=== PATIENT | female | born 2000 | race Caucasian/White ===

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

== ENCOUNTER 2022-09-30 01:59 | Emergency (ER) | payer MEDICAID ==
[~2022-09-30] VITALS: Ht 160 cm; Wt 90.7 kg
[~2022-09-30 01:59] MED LIST changes: +ACHD5005 PO; +DOCU100C37 PO; +FERR325T18 PO; +IBUP-844 PO
[2022-09-30] MEDS ORDERED: PRD50T PO (02:18)
--- NOTE | 2022-09-30 02:19 | ED Respiratory ---
General Chief Complaint: Respiratory Problems Stated Complaint: SOB Nursing Triage Note: PT AMB TO [facility] 5 WITH COMPLAINTS OF SOB AND CHEST PRESSURE AFTER SHE STOPPED SMOKING/VAPING. PT IS CURRENTLY TAKING BREATHING TREATMENTS. Source: patient Exam Limitations: no limitations History of Present Illness Date Seen by Provider: Sep 30, 2022 Time Seen by Provider: 02:06 Initial Comments 22-year-old female presents to the emergency department today for cough, SOB, chest tightness. Symptoms present for months since she quit smoking 1 month ago. She has a productive cough. Denies any fevers or chills. States she was worsening shortness of breath. Using inhalers seem to help some. No chest pa in. Feels back to normal now. She does have alpha-1 antitrypsin deficiency Allergies and Home Medications Allergies Coded Allergies: citric acid (Verified Allergy, Unknown, 01/16/19) sodium citrate (Verified Allergy, Unknown, 01/16/19) Patient Home Medication List Home Medication List Reviewed: Yes Docusate Sodium (Docusate Sodium) 100 Mg Capsule, 100 MG PO BID PRN for CONSTIPATION-1ST LINE Prescribed by: CALISTA PAYTON on 10/15/211657 Ferrous Sulfate (Ferrous Sulfate) 325 Mg Tablet, 325 MG PO BID Prescribed by: CALISTA PAYTON on 10/16/21 0730 Hydrocodone Bit/Acetaminophen (HYDROcodone/APAP 5 MG/325 MG TAB) 1 Tab Tab, 1-2 EA PO Q6HR PRN for PAIN-MODERATE (5-7) Prescribed by: CALISTA PAYTON on 10/15/21 165 Ibuprofen (Ibu) 600 Mg Tablet, 600 MG PO Q6HR Prescribed by: CALISTA PAYTON on 10/15/211657 Pnv with Ca,No.72/Iron/FA ( Vitamin with Low Iron) 1 Each Tablet, 1 EACH PO DAILY, (Reported) Entered as Reported by: PEE ZHANG on 08/11/21 1614 Prednisone (Prednisone) 50 Mg Tab, 50 MG PO DAILY Prescribed by: BELINDA VALLADARES MD on 09/30/22 0218 Review of Systems Review of Systems Constitutional: no symptoms reported EENTM: no symptoms reported Respiratory: cough, short of breath Cardiovascular: no symptoms reported Gastrointestinal: no symptoms reported Genitourinary: no symptoms reported Musculoskeletal: no symptoms reported Skin: no symptoms reported Psychiatric/Neurological: No Symptoms Reported Hematologic/Lymphatic: No Symptoms Reported Past Wlndxup-Wmrkuk-Jsrurz Hx Patient Social History Tobacco Use?: Yes Smoking Status: Former Smoker Substance use?: No Alcohol Use?: No Immunizations Up To Date PED Vaccines UTD: Yes First/Initial COVID19 Vaccinat: 10/2020 Second COVID19 Vaccination César: 11/2020 Third COVID19 Vaccination Date: 10/2020 Seasonal Allergies Seasonal Allergies: No Past Medical History Surgeries: Yes (D&C) Gallbladder Respiratory: No Cardiac: No Neurological: No Reproductive Disorders: No Female Reproductive Disorders: Denies 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 2.0oz. 63.013206tz; 35.00 BMI Method:Stated General Appearance: WD/WN, no apparent distress HEENT: normal ENT inspection, pharynx normal Neck: supple, normal inspection Respiratory: chest non-tender, lungs clear, normal breath sounds, no respiratory distress, no accessory muscle use Cardiovascular: regular rate, rhythm, no murmur Gastrointestinal: normal bowel sounds, non tender, soft, no organomegaly Extremities: non-tender, normal inspection, no pedal edema Neurologic/Psychiatric: alert, normal mood/affect, oriented x 3 Progress/Results/Core Measures Suspected Sepsis SIRS Temperature: Pulse: 72 Respiratory Rate: Blood Pressure 125 /83 Mean: 97 Results/Orders Vital Signs/I&O 09/30/22 09/30/22 09/30/22 02:01 02:01 02:32 Pulse 72 63 B/P (MAP) 125/83 (97) 124/65 Pulse Ox 95 97 O2 Delivery Room Air Room Air Room Air Capillary Refill : Blood Pressure Mean: 97 Departure Communication (Admissions) Patient is hemodynamically stable with a normal exam. Normal respiratory rate, oxygen saturation. Lungs are clear on exam as well. No evidence for pneumonia, pneumothorax. She is afebrile. No indication for chest x-ray at this time. Impression Primary Impression: Shortness of breath Disposition: HOME, SELF-CARE Condition: Stable Departure-Patient Inst. Referrals: [facility] [place], [place] (PCP/Family) Primary Care Physician Patient Instructions: Shortness of Breath, Adult ED Add. Discharge Instructions: I believe the symptoms you are experiencing are normal after quitting smoking. There is no evidence for pneumonia. Your oxygen levels are normal and breathing rate is normal as well. Continue to use your breathing treatments at home as well as rescue inhalers. Start the prednisone tomorrow. Take it in the morning to avoid issues with sleep. Return to the emergency department for any severe concerns. All discharge instructions reviewed with patient and/or family. Voiced understanding. Scripts Prednisone (Prednisone) 50 Mg Tab 50 MG PO DAILY for 5 Days, #5 TAB Prov: BELINDA VALLADARES DO 09/30/22 Work/School Note: Work Release Form Date Seen in the Emergency Department: Sep 30, 2022 Return to Work: Oct 01, 2022 Restrictions: No Restrictions BELINDA VALLADARES DO Sep 30, 2022 02:19
[2022-09-30 02:32] VITALS: BP 124/65
== END 2022-09-30 02:28 | disposition home or self-care (01) ==
LOC: EDUNIT# 01:59 → ER 02:01
DX: R06.02 Shortness of breath (principal); Z87.891 Personal history of nicotine dependence; Z28.310 Unvaccinated for COVID-19
CPT/HCPCS: 99281

== ENCOUNTER 2022-12-08 21:51 | Emergency (ER) | payer MEDICAID ==
[~2022-12-08] VITALS: Ht 157.5 cm; Wt 88.5 kg
[~2022-12-08 21:51] MED LIST changes: +PRD50T PO
[2022-12-08] MEDS ORDERED: RT-ALBUINH INH (22:07)
--- NOTE | 2022-12-08 22:16 | ED Cough/URI ---
General Chief Complaint: Cough/Cold/Flu Symptoms Stated Complaint: FEVER| TROUBLE WALKING|SOB|DEHYDRATED Nursing Triage Note: fever, soa, productive cough, generalized cramping, decreased po intake, dehrdration x3 days. Source: patient Exam Limitations: no limitations History of Present Illness Date Seen by Provider: December 08, 2022 Time Seen by Provider: 22:12 Initial Comments Patient is a 22-year-old female who presents to the emergency room with a chief complaint of 3 days of nausea, decreased appetite, shortness of breath, productive cough, body aches and fever. Patient is fully vaccinated not COVID vaccinated. She has a history of alpha 1 antitrypsin deficiency. She has not taken anything for her symptoms today nor has she taken anything in the last 3 days. She does endorse vaping. No daily alcohol. Has not had menstrual cycles in several months due to implanted control. She feels lightheaded and dizzy when she stands up. She states her urine is darker than normal. She denies dysuria. No abnormal vaginal discharge. Noted to be quite tachycardic with heart rates in the upper 130s on arrival. Oxygen saturations 92 to 95%. She does use inhalers at home. Timing/Duration: other (3 days) Severity/Quality: productive cough, sputum (Yellow-green) Modifying Factors: Improves With Albuterol Inhaler Associated Symptoms: cough, dizziness, fever/chills, lightheadedness, nasal congestion, shortness of breath Allergies and Home Medications Allergies Coded Allergies: citric acid (Verified Allergy, Unknown, 01/16/19) sodium citrate (Verified Allergy, Unknown, 01/16/19) Patient Home Medication List Home Medication List Reviewed: Yes Albuterol Sulfate (Ventolin Hfa) 1 Puff Puff, Unknown Dose INH Q4H, (Reported) Entered as Reported by: JULIANA AUSTIN on 12/08/222206 Last Action: New Order Discontinued Medications Docusate Sodium (Docusate Sodium) 100 Mg Capsule, 100 MG PO BID PRN for CONSTIPATION-1ST LINE Discontinued Reason: No Longer Taking Prescribed by: CALISTA PAYTON on 10/15/21 1658 Last Action: Discontinued Ferrous Sulfate (Ferrous Sulfate) 325 Mg Tablet, 325 MG PO BID Discontinued Reason: No Longer Taking Prescribed by: CALISTA PAYTON on 10/16/21 0730 Last Action: Discontinued Hydrocodone Bit/Acetaminophen (HYDROcodone/APAP 5 MG/325 MG TAB) 1 Tab Tab, 1-2 EA PO Q6HR PRN for PAIN-MODERATE (5-7) Discontinued Reason: No Longer Taking Prescribed by: CALISTA PAYTON on 10/15/211657 Last Action: Discontinued Ibuprofen (Ibu) 600 Mg Tablet, 600 MG PO Q6HR Discontinued Reason: No Longer Taking Prescribed by: CALISTA PAYTON on 10/15/211657 Last Action: Discontinued Pnv with Ca,No.72/Iron/FA ( Vitamin with Low Iron) 1 Each Tablet, 1 EACH PO DAILY, (Reported) Discontinued Reason: No Longer Taking Entered as Reported by: PEE ZHANG on 08/11/211613 Last Action: Discontinued Prednisone (Prednisone) 50 Mg Tab, 50 MG PO DAILY Discontinued Reason: No Longer Taking Prescribed by: BELINDA VALLADARES MD on 09/30/22217 Last Action: Discontinued Review of Systems Review of Systems Constitutional: see HPI, fever, malaise EENTM: nose congestion Respiratory: cough, phlegm, short of breath Cardiovascular: no symptoms reported Gastrointestinal: loss of appetite Genitourinary: other (Dark urine) : No Musculoskeletal: back pain (Low back pain just above the bilateral hips) Skin: no symptoms reported Psychiatric/Neurological: Other (Lightheaded) All Other Systems Reviewed Negative Unless Noted: Yes Past Ykittsr-Oiufwm-Kepjni Hx Patient Social History Tobacco Use?: Yes Substance use?: No Alcohol Use?: Yes Alcohol Frequency: Rarely Pt feels they are or have been: No Immunizations Up To Date PED Vaccines UTD: Yes First/Initial COVID19 Vaccinat: denies Second COVID19 Vaccination César: 11/2020 Third COVID19 Vaccination Date: 10/2020 Seasonal Allergies Seasonal Allergies: No Past Medical History Surgery/Hospitalization HX: alpha 1 deficiency, cholecystectomy, . 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 Sexually Transmitted Disease: No HIV/AIDS: No Genitourinary: No Gastrointestinal: No Gastroesophageal Reflux Musculoskeletal: No Endocrine: No HEENT: No Loss of Vision: Denies Hearing Impairment: Denies Cancer: No Psychosocial: Yes Anxiety, Depression Integumentary: No Blood Disorders: No Adverse Reaction/Blood Tranf: No (N/A) Family Medical History Cardiovascular disease Diabetes mellitus Heart Disease, Diabetes Physical Exam Vital Signs - First Documented 12/08/22 22:00 Temp 38.1 Pulse 148 Resp 20 B/P (MAP) 99/65 (76) Pulse Ox 96 O2 Delivery Room Air Capillary Refill : Less Than 3 Seconds Height: 5'2.00" Weight: 140lbs. 2.0oz. [id number]; 35.00 BMI Method:Stated General Appearance: WD/WN, no apparent distress Eyes: Bilateral Eye Normal Inspection, Bilateral Eye PERRL, Bilateral Eye EOMI HEENT: PERRL/EOMI, normal ENT inspection, TMs normal, other (Dry mucous membranes) Neck: full range of motion, supple Respiratory: lungs clear, normal breath sounds, no respiratory distress, no accessory muscle use Cardiovascular: regular rate, rhythm, tachycardia (130s) Gastrointestinal: non tender, soft Extremities: normal range of motion, non-tender, normal inspection, no pedal edema, no calf tenderness, normal capillary refill Neurologic/Psychiatric: no motor/sensory deficits, alert, normal mood/affect, oriented x 3 Skin: normal color, warm/dry Focused Exam Lactate Level 12/08/22 22:33: Lactic Acid Level 0.97 Time of Focused Exam: 00:05 Respiratory: Lungs Clear, Normal Breath Sounds, No Accessory Muscle Use, No Respiratory Distress Cardiovascular: Tachycardia Capillary Refill: Less Than 3 Seconds Peripheral Pulses: 2+ Radial Pulses (R), 2+ Radial Pulses (L) Skin: normal color, warm/dry Lactic Acid Level Laboratory Tests Test 12/08/22 22:33 Lactic Acid Level 0.97 MMOL/L (0.50-2.00) Within 3hrs of presentation: Admin fluids, Focus exam, Lactate level Progress/Results/Core Measures Suspected Sepsis Recent Fever Within 48 Hours: Yes Infection Criteria Present: Suspected New Infection New/Unexplained Altered Menta: No Within 3hrs of presentation: Admin fluids, Admin ABX, Blood cultures prior to ABX's, D/C Instructions given to patient, Focus exam, Lactate level SIRS Temperature: Pulse: 148 Respiratory Rate: 20 Laboratory Tests 12/08/22 22:33: White Blood Count 14.1H Blood Pressure 99 /65 Mean: 76 12/08/22 22:33: Lactic Acid Level 0.97 Laboratory Tests 12/08/22 22:33: Creatinine 0.86, INR Comment 1.1, Platelet Count 215, Total Bilirubin 0.7 Results/Orders Lab Results Laboratory Tests Test 12/08/22 22:33 12/08/22 23:12 12/08/22 23:18 Range/Units White Blood Count 14.1 H 4.3-11.0 10^3/uL Red Blood Count 4.76 3.80-5.11 10^6/uL Hemoglobin 13.3 11.5-16.0 g/dL Hematocrit 39 35-52 % Mean Corpuscular Volume 82 80-99 fL Mean Corpuscular Hemoglobin 28 25-34 pg Mean Corpuscular Hemoglobin Concent 34 32-36 g/dL Red Cell Distribution Width 12.1 10.0-14.5 % Platelet Count 215 130-400 10^3/uL Mean Platelet Volume 10.2 9.0-12.2 fL Immature Granulocyte % (Auto) 1 % Neutrophils (%) (Auto) 94 H 42-75 % Lymphocytes (%) (Auto) 3 L 12-44 % Monocytes (%) (Auto) 2 0-12 % Eosinophils (%) (Auto) 0 0-10 % Basophils (%) (Auto) 0 0-10 % Neutrophils # (Auto) 13.3 H 1.8-7.8 10^3/uL Lymphocytes # (Auto) 0.4 L 1.0-4.0 10^3/uL Monocytes # (Auto) 0.3 0.0-1.0 10^3/uL Eosinophils # (Auto) 0.0 0.0-0.3 10^3/uL Basophils # (Auto) 0.0 0.0-0.1 10^3/uL Immature Granulocyte # (Auto) 0.1 0.0-0.1 10^3/uL Neutrophils % (Manual) 88 % Lymphocytes % (Manual) 4 % Monocytes % (Manual) 2 % Eosinophils % (Manual) 0 % Basophils % (Manual) 0 % Band Neutrophils 6 % Toxic Granulation 1+ Prothrombin Time 14.9 H 12.2-14.7 SEC INR Comment 1.1 0.8-1.4 Activated Partial Thromboplast Time 36 H 24-35 SEC Sodium Level 132 L 135-145 MMOL/L Potassium Level 3.6 3.6-5.0 MMOL/L Chloride Level 100 98-107 MMOL/L Carbon Dioxide Level 18 L 21-32 MMOL/L Anion Gap 14 5-14 MMOL/L Blood Urea Nitrogen 8 7-18 MG/DL Creatinine 0.86 0.60-1.30 MG/DL Estimat Glomerular Filtration Rate 99 BUN/Creatinine Ratio 9 Glucose Level 116 H 70-105 MG/DL Lactic Acid Level 0.97 0.50-2.00 MMOL/L Calcium Level 9.4 8.5-10.1 MG/DL Corrected Calcium 9.2 8.5-10.1 MG/DL Total Bilirubin 0.7 0.1-1.0 MG/DL Aspartate Amino Transf (AST/SGOT) 24 5-34 U/L Alanine Aminotransferase (ALT/SGPT) 30 0-55 U/L Alkaline Phosphatase 95 40-136 U/L Total Protein 7.5 6.4-8.2 GM/DL Albumin 4.2 3.2-4.5 GM/DL Influenza Type A (RT-PCR) Not Detected Not Detecte Influenza Type B (RT-PCR) Not Detected Not Detecte SARS-CoV-2 RNA (RT-PCR) Not Detected Not Detecte Urine Color YELLOW Urine Clarity SL CLOUDY Urine pH 7.5 5-9 Urine Specific [place] 1.010 L 1.016-1.022 Urine Protein NEGATIVE NEGATIVE Urine Glucose (UA) NEGATIVE NEGATIVE Urine Ketones 1+ H NEGATIVE Urine Nitrite NEGATIVE NEGATIVE Urine Bilirubin NEGATIVE NEGATIVE Urine Urobilinogen 0.2 < = 1.0 MG/DL Urine Leukocyte Esterase 1+ H NEGATIVE Urine RBC (Auto) 1+ H NEGATIVE Urine RBC RARE /HPF Urine WBC 5-10 H /HPF Urine Squamous Epithelial Cells 2-5 /HPF Urine Crystals NONE /LPF Urine Bacteria FEW H /HPF Urine Casts NONE /LPF Urine Mucus NEGATIVE /LPF Urine Culture Indicated CULTURE PENDING My Orders Orders - ODESSA MOONEY MD Cbc With Automated Diff (12/08/22 22:22) Comprehensive Metabolic Panel (12/08/22 22:22) Blood Culture (12/08/22 22:22) Sputum Culture (12/08/22 22:22) Urinalysis (12/08/22 22:22) Urine Culture (12/08/22 22:22) Protime With Inr (12/08/22 22:22) Partial Thromboplastin Time (12/08/22 22:22) Chest 1 View, Ap/Pa Only (12/08/22 22:22) Ed Iv/Invasive Line Start (12/08/22 22:22) Ed Iv/Invasive Line Start (12/08/22 22:22) Vital Signs Adult Sepsis Patie Q15M (12/08/22 22:22) O2 (12/08/22 22:22) Remove Rings In Anticipation O (12/08/22 22:22) Lactic Acid Analyzer (12/08/22 22:22) Covid 19 Inhouse Test (12/08/22 22:22) Influenza A And B By Pcr (12/08/22 22:22) Isolation Central Supply Req (12/08/22 22:22) Ns Iv 1000 Ml (Sodium Chloride 0.9%) (12/08/22 22:30) Manual Differential (12/08/22 22:33) Ns Iv 1000 Ml (Sodium Chloride 0.9%) (12/08/22 23:44) Ketorolac Injection (Toradol Injection) (12/09/22 00:00) Ondansetron Injection (Zofran Injectio (12/09/22 00:00) Acetaminophen Tablet (Tylenol Tablet) (12/09/22 01:00) Amoxicillin/Clavulanate Tablet (Augmenti (12/09/22 00:59) Medications Given in ED Current Medications Medications Dose Ordered Sig/Burak Route Start Time Stop Time Status Last Admin Dose Admin Acetaminophen 1,000 mg ONCE ONCE PO 12/09/22 01:00 12/09/22 01:01 DC 12/09/22 01:00 1,000 MG Ketorolac Tromethamine 15 mg ONCE ONCE IVP 12/09/22 00:00 12/09/22 00:01 DC 12/09/22 00:05 15 MG Ondansetron HCl 4 mg ONCE ONCE IVP 12/09/22 00:00 12/09/22 00:01 DC 12/09/22 00:05 4 MG Vital Signs/I&O 12/08/22 12/09/22 22:00 01:11 Temp 38.1 Pulse 148 105 Resp 20 B/P (MAP) 99/65 (76) 107/61 Pulse Ox 96 95 O2 Delivery Room Air Room Air 12/09/22 00:00 Intake Total 1000 ml Balance 1000 ml Capillary Refill : Less Than 3 Seconds Blood Pressure Mean: 76 Progress Note : Time: 00:56 Progress Note HR 105 Patient seen and evaluated by me. Evaluation today includes physical exam, CBC, Chem-12, lactic acid, blood cultures, coags, urinalysis, flu and COVID testing as well as chest x-ray. Pertinent physical exam findings well-developed well- nourished obese female mild distress due to illness. HEENT exam shows dry mucous membranes, normal oropharynx otherwise without tonsillar enlargement or exudate. TMs are clear bilaterally. Heart is very tachycardic, lungs are clear without respiratory distress. Abdomen is soft and benign. No calf tenderness or swelling. No rashes. Patient is febrile on presentation. Differential diagnosis based on history and physical exam, pneumonia, nonspecific viral syndrome, bronchitis, sepsis. Independent evaluation of chest x-ray and labs by me show CBC with a white count of 14.1, 94% segs. Hemoglobin is 13.3 hematocrit of 39 platelet count of 215. Chem-12 is remarkable for CO2 of 18 blood sugar of 116. Lactic acid is 0.97. Coags are slightly elevated with a PT of 14.9 PTT of 36 INR 1.1. Urinalysis shows a specific gravity of 1.010 with 1+ ketones and leukocyte Estrace. 1+ RBC with rare red blood cells on microscopy. 5-10 white blood cells and few bacteria. Viral panel is negative. Chest x-ray is reviewed by me and shows no infiltrates or effusions. Patient is treated in the emergency department with Toradol 15 mg and Zofran 4 mg. She is given 2 L of IV fluids. Patient feels better after fluids and pain medications. Heart rate is down to 100-105. Temperature is decreased. Secondary to the patient's history of alpha 1 antitrypsin deficiency and smoking as well as abnormal urinalysis we will go ahead and place the patient on antibiotics, Augmentin. First dose is given in the emergency department. Low clinical suspicion for pneumonia as her chest x- ray is clear. She does meet SIRS criteria without sepsis as lactic acid is less than 2. Patient is comfortable with discharge to home. Encourage compliance with medications and smoking cessation. Return precautions are given in both verbal and written format. All questions are sought and answered. Patient is stable for discharge. Departure Impression Primary Impression: Acute bronchitis Qualified Codes: J20.9 - Acute bronchitis, unspecified Additional Impression: Urinary tract infection Qualified Codes: N30.00 - Acute cystitis without hematuria Disposition: HOME, SELF-CARE Condition: Improved Departure-Patient Inst. Decision time for Depature: 00:57 Referrals: [facility] (PCP/Family) Primary Care Physician Patient Instructions: Bronchitis, Adult ED, Urinary Tract Infection, Adult (DC) Add. Discharge Instructions: Push fluids so that you stay well hydrated. Zofran for nausea. 1 pill every 6 -8 hours as needed for upset stomach. Take the antibiotics as directed for 7 days. Augmentin 875mg twice a day for 7 days. Use your inhalers as needed/directed. If in 24-48 hours you are not improving, or if symptoms are getting worse, please return to the Emergency Department for re-evaluation. PLease follow up next week at [facility]. Copy Copies To 1: LYDIA VENTURA KATHRYN M MD December 08, 2022 22:16
[2022-12-08] MEDS ORDERED: NS IV 1000 ML 1,000 ML IV SCH (22:30)
[2022-12-08 22:46] LABS: BASOPHILS % (AUTO) 0 % (0-10); EOSINOPHILS % (AUTO) 0 % (0-10); HEMATOCRIT 39 % (35-52); HEMOGLOBIN 13.3 g/dL (11.5-16.0); LYMPHOCYTES # (AUTO) 0.4 10^3/uL (1.0-4.0); LYMPHOCYTES % (AUTO) 3 % (12-44); MEAN CORPUSCULAR HEMOGLOBIN 28 pg (25-34); MEAN CORPUSCULAR HGB CONC 34 g/dL (32-36); MEAN CORPUSCULAR VOLUME 82 fL (80-99); MEAN PLATELET VOLUME 10.2 fL (9.0-12.2); MONOCYTES # (AUTO) 0.3 10^3/uL (0.0-1.0); MONOCYTES % (AUTO) 2 % (0-12); NEUTROPHILS # (AUTO) 13.3 10^3/uL (1.8-7.8); NEUTROPHILS % (AUTO) 94 % (42-75); PLATELET COUNT 215 10^3/uL (130-400); WHITE BLOOD COUNT 14.1 10^3/uL (4.3-11.0)
[2022-12-08 22:57] LABS: ALBUMIN 4.2 GM/DL (3.2-4.5)
[2022-12-08 22:58] LABS: POTASSIUM 3.6 MMOL/L (3.6-5.0)
[2022-12-08 22:59] LABS: CALCIUM 9.4 MG/DL (8.5-10.1)
[2022-12-08 23:00] LABS: INR 1.1 (0.8-1.4); PROTHROMBIN TIME PATIENT 14.9 SEC (12.2-14.7); TOTAL PROTEIN 7.5 GM/DL (6.4-8.2)
[2022-12-08 23:02] LABS: BILIRUBIN,TOTAL 0.7 MG/DL (0.1-1.0)
[2022-12-08 23:03] LABS: CREATININE SERUM 0.86 MG/DL (0.60-1.30)
[2022-12-08 23:06] LABS: BAND NEUTROPHILS 6 %; BASOPHILS % (MANUAL) 0 %; EOSINOPHILS % (MANUAL) 0 %; LYMPHOCYTES % (MANUAL) 4 %; MONOCYTES % (MANUAL) 2 %; NEUTROPHILS % (MANUAL) 88 %; TOXIC GRANULATION/VACUOLAZATIO 1+
[2022-12-08 23:27] LABS: BILIRUBIN,URINE NEGATIVE (NEGATIVE); COLOR,URINE YELLOW; GLUCOSE, URINE (UA) NEGATIVE (NEGATIVE); KETONES,URINE 1+ (NEGATIVE); LEUKOCYTE ESTERASE ,URINE 1+ (NEGATIVE); NITRITE,URINE NEGATIVE (NEGATIVE); PH,URINE 7.5 (5-9); PROTEIN,URINE NEGATIVE (NEGATIVE)
[2022-12-08 23:32] LABS: BACTERIA,URINE FEW /HPF; CLARITY,URINE SL CLOUDY; RBC,URINE RARE /HPF
[2022-12-08] MEDS ORDERED: NS IV 1000 ML 1,000 ML IV STA (23:44)
[2022-12-09] MEDS ORDERED: ONDANSETRON 4 MG/2 ML (SDV) Z0FRAN IVP ONE
[2022-12-09] MEDS ORDERED: KETOROLAC 15 MG/ML VIAL IVP ONE
[2022-12-09] MEDS ORDERED: AUGMENTIN 875 MG TAB (AMOXICILLIN/CLAVULANATE) PO STA (00:59)
[2022-12-09] MEDS ORDERED: ACETAMINOPHEN 500 MG TAB (TYLENOL) PO ONE (01:00)
[2022-12-09 01:11] VITALS: BP 107/61
--- NOTE | 2022-12-09 07:34 | Diagnostic Imaging Report ---
Indication: Fever Single AP view of the chest is obtained. COMPARISON: No previous study is available for comparison at this time. FINDINGS: Heart size and pulmonary vasculature are within normal limits, and the lungs are clear, bilaterally. IMPRESSION: Unremarkable chest. Dictated by: Dictated on workstation # [id number]
== END 2022-12-09 01:11 | disposition home or self-care (01) ==
LOC: EDUNIT# 21:51 → ER 21:53
DX: J20.9 Acute bronchitis, unspecified (principal); N39.0 Urinary tract infection, site not specified; F17.290 Nicotine dependence, other tobacco product, uncomplicated; Z20.822 Contact with and (suspected) exposure to COVID-19; Z28.310 Unvaccinated for COVID-19
CPT/HCPCS: 36415; 71045; 80053; 81000; 83605; 85007; 85025; 85027; 85610; 85730; 87040; 87077; 87088; 87186; 87636